=== PATIENT | male | born 1945 | race Hispanic/Latino ===

== ENCOUNTER 2021-06-25 14:36 | Emergency (ER) | payer MEDICARE ==
[2021-06-25 15:27] LABS: Basophils % (Auto) 0.7 % (0.0-1.8); Eosinophils # (Auto) 0.2 K/mm3 (0.0-0.4); Eosinophils % (Auto) 6.8 % (0.0-4.3); Lymphocytes # (Auto) 1.2 K/mm3 (1.2-5.4); Mean Corpuscular HGB Conc 37 % (32-34); Mean Corpuscular Volume 89 fl (84-94); Monocytes # (Auto) 0.2 K/mm3 (0.0-0.8); Platelet Count 151 K/mm3 (140-440); Red Blood Count 3.51 M/mm3 (3.65-5.03); Red Cell Distribution Width 13.5 % (13.2-15.2)
[2021-06-25 15:31] LABS: Hematocrit 31.2 % (35.5-45.6); Hemoglobin 11.4 gm/dl (11.8-15.2)
[2021-06-25 15:43] LABS: Calcium 9.1 mg/dL (8.4-10.2)
[2021-06-25 16:31] LABS: Bilirubin,Urine NEG (Negative); Blood,Urine NEG (Negative); Color,Urine Straw (Yellow); Mucus,Urine FEW /HPF; Protein,Urine <15 mg/dL mg/dL (Negative); RBC,Urine < 1.0 /HPF (0.0-6.0); Urobilinogen,Urine < 2.0 mg/dL (<2.0); WBC,Urine < 1.0 /HPF (0.0-6.0)
[2021-06-25 16:36] LABS: Amphetamine Screen,Urine Negative; Benzodiazepines Screen,Urine Negative; Cannabinoid Screen,Urine Negative; Cocaine Screen,Urine Negative; Methadone Screen,Urine Negative; Opiate Screen,Urine Negative
[2021-06-25] MEDS ORDERED: LORazepam 2 MG/ML VIAL IM PRN (17:09)
[2021-06-25] MEDS ORDERED: ACETAMINOPHEN 325 MG TAB PO PRN (17:09)
[2021-06-25] MEDS ORDERED: HALOPERIDOL LACTATE 5 MG/1 ML INJ IM PRN (17:09)
--- NOTE | 2021-06-25 17:12 | Emergency Department Report ---
ED General Adult HPI - General Chief complaint: Psych Stated complaint: MH/SUICIDAL/1013 Time Seen by Provider: 06/25/21 16:39 Source: patient, family, EMS ( EMS documentation not available at time of chart dictation ), RN notes reviewed, old records reviewed Mode of arrival: Stretcher Limitations: Other (dementia) - History of Present Illness Initial comments: This patient is a pleasant 75-year-old gentleman. History obtained from patient, and by speaking to his Ms. Aguilera; [id number] The patient has a history of A. fib, now resolved, permanent pacemaker, previously on Eliquis, dementia, hypertension, diabetes. He also has a history of hyperlipidemia. He is referred to the emergency room because of a complaint of painless suicidality. The patient does not remember complaining of suicidality. He denies physical pain to myself. He denies homicidality and suicidality. His reports that he has been chronically suicidal, and de pressed since participating in the [place]. The patient denies all complaints at this time. He does report that he enjoys the company of the nursing staff here in the emergency room. -: unknown Improves with: none Worsens with: none Associated Symptoms: denies other symptoms - Related Data Allergies Allergy/AdvReac Type Severity Reaction Status Date / Time No Known Allergies Allergy Verified 06/25/21 14:43 ED Review of Systems ROS: Stated complaint: MH/SUICIDAL/1013 Other details as noted in HPI Comment: All other systems reviewed and negative ED Physical Exam - General Limitations: Other (Patient is demented hard of hearing and a poor historian) General appearance: alert (Patient is awake, alert to name, pleasant and cooperative), in no apparent distress - Head Head exam: Present: atraumatic, normocephalic - Eye Eye exam: Present: normal appearance, EOMI. Absent: nystagmus - ENT ENT exam: Present: normal exam, normal orophraynx, mucous membranes moist, normal external ear exam - Neck Neck exam: Present: normal inspection, full ROM. Absent: tenderness, meningismus - Respiratory Respiratory exam: Present: normal lung sounds bilaterally. Absent: respiratory distress, wheezes, rales, rhonchi, stridor, accessory muscle use - Cardiovascular Cardiovascular Exam: Present: regular rate, normal rhythm, bradycardia, normal heart sounds. Absent: irregular rhythm, systolic murmur, diastolic murmur, rubs, gallop - GI/Abdominal GI/Abdominal exam: Present: soft. Absent: distended, tenderness, guarding, rebound, rigid, pulsatile mass - Rectal Rectal exam: Present: deferred - Extremities Exam Extremities exam: Present: full ROM, other (2+ pulses noted in the bilateral upper and lower extremities. There is no palpable cord. negative Homans sign. Muscular compartments are soft. The pelvis is stable.). Absent: normal inspection (Chronic venous stasis changes noted), pedal edema, calf tenderness - Back Exam Back exam: Present: normal inspection. Absent: tenderness, CVA tenderness (R), CVA tenderness (L), paraspinal tenderness, vertebral tenderness - Neurological Exam Neurological exam: Present: alert (The patient is awake and alert to name. The patient follows commands.), reflexes normal, other (No facial droop. Tongue midline. Extraocular movements intact bilaterally. Facial sensation intact to light touch in V1, V2, V3 distribution bilaterally. 5 and a 5 strength in 4 extremities. Sensation intact to light touch in 4 extremities.). Absent: motor sensory deficit - Psychiatric Psychiatric exam: Present: anxious. Absent: homicidal ideation, suicidal ideation - Skin Skin exam: Present: warm, dry, intact, normal color. Absent: rash ED Course Vital Signs 06/25/21 06/25/21 06/25/21 14:58 15:01 15:15 Temperature Pulse Rate Respiratory Rate Blood Pressure 136/56 O2 Sat by Pulse 98 99 98 Oximetry O2 Sat by Pulse Oximetry [ Digit-Finger] 06/25/21 06/25/21 06/25/21 15:31 15:45 16:01 Temperature Pulse Rate Respiratory Rate Blood Pressure 136/56 136/56 119/50 O2 Sat by Pulse 99 96 99 Oximetry O2 Sat by Pulse Oximetry [ Digit-Finger] 06/25/21 06/25/21 06/25/21 16:15 16:31 16:45 Temperature Pulse Rate Respiratory Rate Blood Pressure 119/50 119/50 119/50 O2 Sat by Pulse 97 99 99 Oximetry O2 Sat by Pulse Oximetry [ Digit-Finger] 06/25/21 06/25/21 06/25/21 17:01 17:15 17:30 Temperature Pulse Rate Respiratory Rate Blood Pressure 126/58 126/58 116/50 O2 Sat by Pulse 99 99 100 Oximetry O2 Sat by Pulse Oximetry [ Digit-Finger] 06/25/21 06/25/21 17:33 18:22 Temperature 98.0 F Pulse Rate 63 Respiratory 18 Rate Blood Pressure O2 Sat by Pulse 100 Oximetry O2 Sat by Pulse 99 Oximetry [ Digit-Finger] - Reevaluation(s) Reevaluation #1: 06/25/21 18:20 Differential diagnosis, including but not limited to: Dementia, electrolyte derangement, thyroid derangement, intracranial lesion, medical screening exam, behavioral health screening exam, UTI Assessment and plan: 75-year-old gentleman, who is pleasant, calm and co operative, not homicidal suicidal to myself, but having endorsed suicidality to multiple individuals recently, requires 1013 as per psychiatric recommendations. Laboratory studies unremarkable. Urinalysis unremarkable. CT scan brain, TSH, unremarkable I contacted the patient's , and discussed his care with her. She articulates understanding. At this point in time, this patient does not appear to have an immediate medical contraindication to psychiatric admission, evaluation, consultation and placement. Have requested that nursing team reconcile home medications. Discussed this with the patient's . - Pulse Oximetry Interpretation Digit-Finger Initial Pulse Oximetry Readin O2 Sat by Pulse Oximetry: 99 Actions Taken: none ED Medical Decision Making - Lab Data Result diagrams: 06/25/21 15:03 06/25/21 15:03 Vital Signs 06/25/21 06/25/21 06/25/21 14:58 15:01 15:15 Temperature Pulse Rate Respiratory Rate Blood Pressure 136/56 O2 Sat by Pulse 98 99 98 Oximetry 06/25/21 06/25/21 06/25/21 15:31 15:45 16:01 Temperature Pulse Rate Respiratory Rate Blood Pressure 136/56 136/56 119/50 O2 Sat by Pulse 99 96 99 Oximetry 06/25/21 06/25/21 06/25/21 16:15 16:31 16:45 Temperature Pulse Rate Respiratory Rate Blood Pressure 119/50 119/50 119/50 O2 Sat by Pulse 97 99 99 Oximetry 06/25/21 06/25/21 06/25/21 17:01 17:15 17:30 Temperature Pulse Rate Respiratory Rate Blood Pressure 126/58 126/58 116/50 O2 Sat by Pulse 99 99 100 Oximetry 06/25/21 17:33 Temperature 98.0 F Pulse Rate 63 Respiratory 18 Rate Blood Pressure O2 Sat by Pulse 100 Oximetry Lab Results 06/25/21 06/25/21 06/25/21 Range/Units 15:03 15:03 15:03 WBC (4.5-11.0) K/mm3 RBC (3.65-5.03) M/mm3 Hgb (11.8-15.2) gm/dl Hct (35.5-45.6) % MCV (84-94) fl MCH (28-32) pg MCHC (32-34) % RDW (13.2-15.2) % Plt Count (140-440) K/mm3 Lymph % (Auto) (13.4-35.0) % Moca % (Auto) (0.0-7.3) % Eos % (Auto) (0.0-4.3) % Baso % (Auto) (0.0-1.8) % Lymph # (Auto) (1.2-5.4) K/mm3 Moca # (Auto) (0.0-0.8) K/mm3 Eos # (Auto) (0.0-0.4) K/mm3 Baso # (Auto) (0.0-0.1) K/mm3 Seg Neutrophils % (40.0-70.0) % Seg Neutrophils # (1.8-7.7) K/mm3 Sodium 140 (137-145) mmol/L Potassium 4.5 (3.6-5.0) mmol/L Chloride 106.6 (98-107) mmol/L Carbon Dioxide 23 (22-30) mmol/L Anion Gap 15 mmol/L BUN 23 H (9-20) mg/dL Creatinine 1.2 (0.8-1.3) mg/dL Estimated GFR 59 ml/min BUN/Creatinine Ratio 19 % Glucose 110 H (75-100) mg/dL Calcium 9.1 (8.4-10.2) mg/dL TSH (0.270-4.200) mlU/mL Urine Color (Yellow) Urine Turbidity (Clear) Urine pH (5.0-7.0) Ur Specific [place] (1.003-1.030) Urine Protein (Negative) mg/dL Urine Glucose (UA) (Negative) mg/dL Urine Ketones (Negative) mg/dL Urine Blood (Negative) Urine Nitrite (Negative) Urine Bilirubin (Negative) Urine Urobilinogen (<2.0) mg/dL Ur Leukocyte Esterase (Negative) Urine WBC (Auto) (0.0-6.0) /HPF Urine RBC (Auto) (0.0-6.0) /HPF Urine Mucus /HPF Salicylates < 0.3 L (2.8-20.0) mg/dL Urine Opiates Screen Urine Methadone Screen Acetaminophen 5.0 L (10.0-30.0) ug/mL Ur Barbiturates Screen Ur Phencyclidine Scrn Ur Amphetamines Screen U Benzodiazepines Scrn Urine Cocaine Screen U Marijuana (THC) Screen Drugs of Abuse Note Plasma/Serum Alcohol (0-0.07) % 06/25/21 06/25/21 06/25/21 Range/Units 15:03 15:03 15:03 WBC 3.4 L (4.5-11.0) K/mm3 RBC 3.51 L (3.65-5.03) M/mm3 Hgb 11.4 L (11.8-15.2) gm/dl Hct 31.2 L (35.5-45.6) % MCV 89 (84-94) fl MCH 33 H (28-32) pg MCHC 37 H (32-34) % RDW 13.5 (13.2-15.2) % Plt Count 151 (140-440) K/mm3 Lymph % (Auto) 35.0 (13.4-35.0) % Moca % (Auto) 7.0 (0.0-7.3) % Eos % (Auto) 6.8 H (0.0-4.3) % Baso % (Auto) 0.7 (0.0-1.8) % Lymph # (Auto) 1.2 (1.2-5.4) K/mm3 Moca # (Auto) 0.2 (0.0-0.8) K/mm3 Eos # (Auto) 0.2 (0.0-0.4) K/mm3 Baso # (Auto) 0.0 (0.0-0.1) K/mm3 Seg Neutrophils % 50.5 (40.0-70.0) % Seg Neutrophils # 1.7 L (1.8-7.7) K/mm3 Sodium (137-145) mmol/L Potassium (3.6-5.0) mmol/L Chloride (98-107) mmol/L Carbon Dioxide (22-30) mmol/L Anion Gap mmol/L BUN (9-20) mg/dL Creatinine (0.8-1.3) mg/dL Estimated GFR ml/min BUN/Creatinine Ratio % Glucose (75-100) mg/dL Calcium (8.4-10.2) mg/dL TSH 1.340 (0.270-4.200) mlU/mL Urine Color (Yellow) Urine Turbidity (Clear) Urine pH (5.0-7.0) Ur Specific [place] (1.003-1.030) Urine Protein (Negative) mg/dL Urine Glucose (UA) (Negative) mg/dL Urine Ketones (Negative) mg/dL Urine Blood (Negative) Urine Nitrite (Negative) Urine Bilirubin (Negative) Urine Urobilinogen (<2.0) mg/dL Ur Leukocyte Esterase (Negative) Urine WBC (Auto) (0.0-6.0) /HPF Urine RBC (Auto) (0.0-6.0) /HPF Urine Mucus /HPF Salicylates (2.8-20.0) mg/dL Urine Opiates Screen Urine Methadone Screen Acetaminophen (10.0-30.0) ug/mL Ur Barbiturates Screen Ur Phencyclidine Scrn Ur Amphetamines Screen U Benzodiazepines Scrn Urine Cocaine Screen U Marijuana (THC) Screen Drugs of Abuse Note Plasma/Serum Alcohol < 0.01 (0-0.07) % 06/25/21 06/25/21 Range/Units Unknown Unknown WBC (4.5-11.0) K/mm3 RBC (3.65-5.03) M/mm3 Hgb (11.8-15.2) gm/dl Hct (35.5-45.6) % MCV (84-94) fl MCH (28-32) pg MCHC (32-34) % RDW (13.2-15.2) % Plt Count (140-440) K/mm3 Lymph % (Auto) (13.4-35.0) % Moca % (Auto) (0.0-7.3) % Eos % (Auto) (0.0-4.3) % Baso % (Auto) (0.0-1.8) % Lymph # (Auto) (1.2-5.4) K/mm3 Moca # (Auto) (0.0-0.8) K/mm3 Eos # (Auto) (0.0-0.4) K/mm3 Baso # (Auto) (0.0-0.1) K/mm3 Seg Neutrophils % (40.0-70.0) % Seg Neutrophils # (1.8-7.7) K/mm3 Sodium (137-145) mmol/L Potassium (3.6-5.0) mmol/L Chloride (98-107) mmol/L Carbon Dioxide (22-30) mmol/L Anion Gap mmol/L BUN (9-20) mg/dL Creatinine (0.8-1.3) mg/dL Estimated GFR ml/min BUN/Creatinine Ratio % Glucose (75-100) mg/dL Calcium (8.4-10.2) mg/dL TSH (0.270-4.200) mlU/mL Urine Color Straw (Yellow) Urine Turbidity Clear (Clear) Urine pH 5.0 (5.0-7.0) Ur Specific [place] 1.006 (1.003-1.030) Urine Protein <15 mg/dl (Negative) mg/dL Urine Glucose (UA) Neg (Negative) mg/dL Urine Ketones Neg (Negative) mg/dL Urine Blood Neg (Negative) Urine Nitrite Neg (Negative) Urine Bilirubin Neg (Negative) Urine Urobilinogen < 2.0 (<2.0) mg/dL Ur Leukocyte Esterase Neg (Negative) Urine WBC (Auto) < 1.0 (0.0-6.0) /HPF Urine RBC (Auto) < 1.0 (0.0-6.0) /HPF Urine Mucus Few /HPF Salicylates (2.8-20.0) mg/dL Urine Opiates Screen Negative Urine Methadone Screen Negative Acetaminophen (10.0-30.0) ug/mL Ur Barbiturates Screen Negative Ur Phencyclidine Scrn Negative Ur Amphetamines Screen Negative U Benzodiazepines Scrn Negative Urine Cocaine Screen Negative U Marijuana (THC) Screen Negative Drugs of Abuse Note Disclamer Plasma/Serum Alcohol (0-0.07) % - EKG Data -: EKG Interpreted by Oh - EKG Data 06/25/21 18:21 The EKG is interpreted at 14: 53 Appears to be junctional rhythm, 60 bpm, normal axis, normal intervals, motion artifact, low voltage in the lateral leads. Not a STEMI - Radiology Data Radiology results: pending, report reviewed, image reviewed CT head/brain wo con INDICATION / CLINICAL INFORMATION: 75 years Male; erratic behavior psych symptoms on eliquis. TECHNIQUE: Routine CT head without contrast. All CT scans at this location are performed using CT dose reduction for ALARA by means of automated exposure control. COMPARISON: None. FINDINGS: BRAIN / INTRACRANIAL CONTENTS: No acute hemorrhage, mass effect, midline shift, hydrocephalus, or acute, large territorial infarct. Mild, diffuse cerebral and cerebellar atrophy. There are minimal areas of decreased attenuation in the white matter of the cerebral hemispheres. These are nonspecific findings and may be related to microangiopathy (hypertension, diabetes, atherosclerosis), given the patient's age. It might be difficult to evaluate for small areas of ischemia without diffusion imaging by MRI. CRANIOCERVICAL JUNCTION: No significant abnormality. ORBITS: No significant abnormality of visualized orbits. SINUSES / MASTOIDS: Mild to moderate mucosal thickening in the ethmoids. ADDITIONAL FINDINGS: Atherosclerotic disease is seen in the anterior circulation. IMPRESSION: 1. No focal mass, hemorrhage, hydrocephalus, or acute, large territorial infarct. Signer Name: Calixto Retana MD, III Signed: 06/25/2021 4:58 PM Workstation Name: [id number] Critical care attestation.: If time is entered above; I have spent that time in minutes in the direct care of this critically ill patient, excluding procedure time. ED Disposition Clinical Impression: Dementia, Encounter for medical screening examination, Encounter for behavioral health screening Disposition: [address] [place] [address] Is pt being admited?: No Does the pt Need Aspirin: No Condition: Good Referrals: LUIS ANGEL LONGORIA MD [Primary Care Provider] - 3-5 Days
--- NOTE | 2021-06-25 18:02 | Cat Scan Report ---
CT head/brain wo con INDICATION / CLINICAL INFORMATION: 75 years Male; erratic behavior psych symptoms on eliquis. TECHNIQUE: Routine CT head without contrast. All CT scans at this location are performed using CT dos e reduction for ALARA by means of automated exposure control. COMPARISON: None. FINDINGS: BRAIN / INTRACRANIAL CONTENTS: No acute hemorrhage, mass effect, midline shift, hydrocephalus, or acu te, large territorial infarct. Mild, diffuse cerebral and cerebellar atrophy. There are minimal areas of decreased attenuation in the white matter of the cerebral hemispheres. The se are nonspecific findings and may be related to microangiopathy (hypertension, diabetes, atheroscle rosis), given the patient's age. It might be difficult to evaluate for small areas of ischemia withou t diffusion imaging by MRI. CRANIOCERVICAL JUNCTION: No significant abnormality. ORBITS: No significant abnormality of visualized orbits. SINUSES / MASTOIDS: Mild to moderate mucosal thickening in the ethmoids. ADDITIONAL FINDINGS: Atherosclerotic disease is seen in the anterior circulation. IMPRESSION: 1. No focal mass, hemorrhage, hydrocephalus, or acute, large territorial infarct. Signer Name: Calixto Retana MD, III Signed: 06/25/2021 5:58 PM Workstation Name: [id number]
[2021-06-26 07:31] VITALS: BP 109/59
--- NOTE | 2021-06-28 18:42 | Electrocardiograph Report ---
[facility], [place] Test Date: 2021-06-25 Test Time: 14:53:03 Pat Name: JESSI CHOI Department: Room: Gender: M Sales Estimator: DONNA : 1945 Requested By: ERICH GONZALES Order Number: [id number] Reading MD: Jere Talbert Measurements Intervals [place] Rate: 60 P: MI: QRS: 40 QRSD: 98 T: -31 QT: 414 QTc: 413 Interpretive Statements Junctional rhythm Borderline T abnormalities, diffuse leads No previous ECG available for comparison Electronically Signed On 06-28-2021 18:41:40 EDT by Jere Talbert
== END 2021-06-26 08:00 ==
LOC: ED 14:36
DX: F03.90 Unspecified dementia, unspecified severity, without behavioral disturbance, psychotic disturbance, mood disturbance, and anxiety (principal); Z13.30 Encounter for screening examination for mental health and behavioral disorders, unspecified; I10 Essential (primary) hypertension; E11.9 Type 2 diabetes mellitus without complications
CPT/HCPCS: 36415; 70450; 80048; 80307; 81001; 84443; 85025; 93005; 99285; J2060; 80320; G0480